=== PATIENT | female | born 1995 | race American Indian/Alaskan Native ===

== ENCOUNTER 2016-09-23 20:37 | Day surgery (SDC) | payer SELFPAY ==
[2016-09-23] MEDS ORDERED: SUBLIMAZE IV ONE (21:10)
--- NOTE | 2016-09-23 21:12 | Emergency Department Report ---
HPI - General Chief Complaint: OB/Uterine Contractions Time Seen by Provider: 09/23/16 20:58 - HPI HPI: This is a 20-year-old Afro-[place] female who presents to the emergency department with a miscarriage. The patient was 14 weeks and 2 days and . Earlier today the patient was taking a shower and then was sitting down to have a bowel movement and upon trying to push out her bowel movement she saw a "bag" in the toilet that appeared to come from her vagina. At this point EMS was called. When the patient was standing up to transfer to a gurney the fetus came out and the patient is here at this point with the fetus outside of her body but the umbilical cord and placenta still attached. She has some lower abdominal discomfort. She took some Tylenol for discomfort just prior to presentation. She does not have an NETWORK SUPPORT. She denies any past medical history. ED Past Medical Hx - Past Medical History Previous Medical History?: No - Surgical History Past Surgical History?: No - Social History Smoking Status: Never Smoker - Medications Home Medications: Home Medications Medication Instructions Recorded Confirmed Last Taken Type No Known Home Medications [No 09/23/16 09/23/16 Unknown History Reported Home Medications] ED Review of Systems ROS: Stated complaint: POSSIBLE MISCARRIAGE Other details as noted in HPI Comment: All other systems reviewed and negative Constitutional: denies: chills, fever Eyes: denies: eye pain, eye discharge, vision change ENT: denies: ear pain, throat pain Respiratory: denies: cough, shortness of breath, wheezing Cardiovascular: denies: chest pain, palpitations Gastrointestinal: abdominal pain. denies: nausea, vomiting Genitourinary: other (miscarriage). denies: dysuria Musculoskeletal: denies: back pain, joint swelling, arthralgia Skin: denies: rash, lesions Neurological: denies: headache, weakness, paresthesias Physical Exam - Physical Exam Vital Signs: Vital Signs 09/23/16 20:51 Temperature 97.9 F Pulse Rate 78 Respiratory 18 Rate Blood Pressure 108/62 Blood Pressure 108/62 [Left] O2 Sat by Pulse 98 Oximetry Physical Exam: GENERAL: The patient is well-developed well-nourished. HEENT: Normocephalic. Atraumatic. Extraocular motions are intact. Patient has moist mucous membranes. Pupils equal reactive to light bilaterally. NECK: Supple. Trachea is midline. CHEST/LUNGS: Clear to auscultation. There is no respiratory distress noted. HEART/CARDIOVASCULAR: Regular. There is no tachycardia. There is no gallop rub or murmur. ABDOMEN: Abdomen is soft. Some tenderness to the lower quadrants of the abdomen and pelvis. No guarding rebound tenderness. Nontoxic a rigid abdomen. Patient has normal bowel sounds. There is no abdominal distention. SKIN: Skin is warm and dry. NEURO: The patient is awake, alert, and oriented. The patient is cooperative. The patient has no focal neurologic deficits. The patient has normal speech. MUSCULOSKELETAL: There is no tenderness or deformity. There is no limitation range of motion. There is no evidence of acute injury. : Patient has visibly miscarried and the aborted fetus is in a collection been between her legs with the umbilical cord heading into the vagina still suspected to be attached to the placenta. ED Course Vital Signs 09/23/16 20:51 Temperature 97.9 F Pulse Rate 78 Respiratory 18 Rate Blood Pressure 108/62 Blood Pressure 108/62 [Left] O2 Sat by Pulse 98 Oximetry - Consultations Consultation #1: I spoke with the NETWORK SUPPORT on-call, Dr. Silvestre, who is coming to see the patient in the emergency department. 09/23/16 21:12 ED Medical Decision Making - Medical Decision Making 20-year-old female presents to the emergency department after having a miscarriage at home. Patient presents with the fetus outside of the vagina and a collection been with the umbilical cords going into the vagina, most likely still attached to the placenta. Patient's vital signs are stable throughout ED course. I did a physical examination with charge nurse Rikki with me as a director of broadcast. The NETWORK SUPPORT, Dr. Silvestre, was consult it and saw the patient in the emergency department and is taking her to the OR for a D&C and then short stay. - Differential Diagnosis , miscarriage Critical Care Time: No Critical care attestation.: If time is entered above; I have spent that time in minutes in the direct care of this critically ill patient, excluding procedure time. ED Disposition Clinical Impression: Spontaneous miscarriage, Retained products of conception Disposition: OP ADMITTED IP TO THIS HOSP Is pt being admited?: Yes Condition: Stable Time of Disposition: 22:33
--- NOTE | 2016-09-23 22:10 | Short Stay Summary ---
Short Stay Documentation Date of service: 09/23/16 Narrative H&P: Pt is a 20yo BF LMP 07/15/16 presents to the emergency department with a miscarriage at 14 weeks and 2 days. Earlier today she was taking a shower and then was sitting down to have a bowel movement when she saw a "bag" in the toilet that came from her vagina. At this point EMS was called. When the patient was standing up to transfer to a gurney the fetus came out, and is still hanging outside of her body attached to the in-utero umbilical cord. She has still some lower abdominal discomfort, but bleeding is minimal. She is therefore scheduled for a D&C RUTH. - History Principal diagnosis: Incomplete miscarriage H&P: obtained from office Past Medical History: No medical history Past Surgical History: No surgical history Social history: no significant social history, single - Allergies and Medications Current Medications: Allergies No Known Allergies Allergy (Unverified 09/23/16 20:51) Home Medications Medication Instructions Recorded Confirmed Last Taken Type No Known Home Medications [No 09/23/16 09/23/16 Unknown History Reported Home Medications] - Physical exam General appearance: mild distress Integumentary: no rash HEENT: Atraumatic Lungs: Clear to auscultation Breasts: deferred Heart: Regular rate Gastrointestinal: normal Female Genitourinary: deferred Rectal Exam: deferred Extremities: No edema Neurological: Normal speech - Brief post op/procedure progress note Date of procedure: 09/23/16 Pre-op diagnosis: 1. Incomplete 2. Retained products of conception Post-op diagnosis: same Procedure: D&C Anesthesia: GETA Findings: A 12-14 weeks size uterus with fetus and large placenta attached. Moderate amounts of POC obtained. Surgeon: ANN MARIE GALAN Estimated blood loss: other (300ml) Pathology: list (Fetus, placenta and POC.) Specimen disposition: to lab Condition: stable - Hospital course Hospital course: Unremarkable. - Disposition Condition at discharge: Good Disposition: DISCHARGED TO HOME OR SELFCARE - Discharge Diagnoses (1) Retained products of conception Status: Resolved (2) Spontaneous miscarriage Status: Resolved Short Stay Discharge Plan Activity: no restrictions Diet: regular Follow up with: PRIMARY CARE, [Primary Care Provider] - 3-5 Days ANN MARIE GALAN MD [Staff Physician] - 7 Days Prescriptions: Doxycycline [Vibramycin CAP] 100 mg PO Q12HR #14 capsule Ibuprofen [Motrin] 800 mg PO Q8HR PRN #30 tablet PRN Reason: Pain, Moderate (4-6) Methylergonovine [Methergine] 0.2 mg PO Q8HR #6 tablet
[2016-09-23] MEDS ORDERED: DILAUDID ONE (22:32)
[2016-09-23] MEDS ORDERED: DIPRIVAN 10 MG/ML IV ONE (22:32)
[2016-09-23] MEDS ORDERED: XYLOCAINE MPF 2% ONE (22:34)
[2016-09-23] MEDS ORDERED: DECADRON ONE (22:34)
[2016-09-23] MEDS ORDERED: ZOFRAN ONE (22:34)
[2016-09-23] MEDS ORDERED: VERSED ONE (22:35)
[2016-09-23] MEDS ORDERED: LACTATED RINGERS 1,000 ML ONE ×2 (22:36→23:52)
[2016-09-23] MEDS ORDERED: PEPCID IV ONE (22:37)
[2016-09-23] MEDS ORDERED: REGLAN ONE (22:37)
--- NOTE | 2016-09-23 22:44 | Anesthesia Consultation ---
Anesthesia Consult and Med Hx Date of service: 09/23/16 - Airway Anesthetic Teeth Evaluation: Good ROM Head & Neck: Adequate Mental/Hyoid Distance: Adequate Mallampati Class: Class I Intubation Access Assessment: Good - Pulmonary Exam CTA: Yes - Cardiac Exam Cardiac Exam: RRR - Pre-Operative Health Status ASA Pre-Surgery Classification: ASA1, Emergency Proposed Anesthetic Plan: General - Gastrointestinal Hx Gastroesophageal Reflux Disease: No - Additional Comments Anesthesia Medical History Comments: incomplete at 14 weeks and 2 days. No significant past medical history.
--- NOTE | 2016-09-23 22:44 | Anesthesia Day of Surgery ---
Anesthesia Day of Surgery - Day of Surgery Patient Examined: Yes Patient H&P Reviewed: Yes Patient is NPO: No (few potato chips at 2100)
[2016-09-23] MEDS ORDERED: NORCO 5/325 PO PRN ×2 (22:45)
[2016-09-23] MEDS ORDERED: ZOFRAN IV PRN ×2 (22:45)
[2016-09-23 22:56] LABS: Hematocrit 30.5 % (30.3-42.9); Hemoglobin 10.5 gm/dl (10.1-14.3); Mean Corpuscular HGB Conc 34 % (30-34); Mean Corpuscular Hemoglobin 31 pg (28-32); Mean Corpuscular Volume 91 fl (79-97); Platelet Count 279 K/mm3 (140-440); Red Blood Count 3.37 M/mm3 (3.65-5.03); Red Cell Distribution Width 13.1 % (13.2-15.2)
[2016-09-23] MEDS ORDERED: ANCEF/STERILE WATER 2 GM/20 ML 2 GM/20 ML SYRINGE IV NR (23:00)
[2016-09-23] MEDS ORDERED: REGLAN IV NR (23:00)
[2016-09-23] MEDS ORDERED: PEPCID IV NR (23:00)
[2016-09-23] MEDS ORDERED: LACTATED RINGERS 1,000 ML IV SCH (23:00)
[2016-09-23] MEDS ORDERED: NACL 0.9% 1000 ML 1,000 ML ONE (23:14)
[2016-09-23] MEDS ORDERED: METHERGINE IM ONE (23:24)
[2016-09-23] MEDS ORDERED: DILAUDID IV PRN (23:33)
--- NOTE | 2016-09-23 23:36 | Post Anesthesia Evaluation ---
- Post Anesthesia Evaluation Patient Participated: Yes Airway Patent: Yes Stable Respiratory Function: Yes Temp > 96.8F: Yes Pain Manageable: Yes Adequeate Hydration: Yes Anesthesia Complications: No Block Receding Appropriately: Not Applicable
--- NOTE | 2016-09-23 23:40 | Operative Report ---
Operative Report Operative Report: PREOPERATIVE DIAGNOSIS: 1. Incomplete 2. Retained products of conception POSTOPERATIVE DIAGNOSIS: Same OPERATIVE PROCEDURE: Dilatation and curettage. SURGEON: Gene Silvestre MD ANESTHESIA: General endotracheal intubation ANESTHESIOLOGIST: Dr. Sorensen ESTIMATED BLOOD LOSS: 300 mL's FINDINGS: A 12-14 week size uterus with intact placenta attached to fetus, and moderate amounts of products of conception COMPLICATIONS: None COUNTS: Correct x3. PROCEDURE: After the patient was correctly identified, and after general anesthesia was administered, the umbilical cord was cut, thus the fetus from the placenta, and the placenta was also delivered intact and sent to pathology. Next the patient was prepped and draped in the usual sterile fashion and placed in dorsal lithotomy position. The bladder was emptied using a straight catheter, and a speculum was placed in the vaginal vault and the anterior lip of the cervix was grasped using a single-tooth tenaculum. The uterus was sounded to 14 cm. The cervical os was sequentially dilated, and a 12 mm vaccurette was used to suction blood and products of conception from the uterine cavity. After all the products of conception were removed, the procedure was considered complete. All instruments were removed from the vagina. The patient tolerated the procedure well and was transferred to the recovery room in stable condition.
[2016-09-24] MEDS ORDERED: DILAUDID ONE (00:44)
[2016-09-24] MEDS: DILAUDID IV PRN ×2 (00:45→00:55)
[2016-09-24 01:53] VITALS: BP 110/68
== END 2016-09-23 22:47 | disposition home or self-care (01) ==
LOC: ED 20:37 → OR 22:46 → ED 22:46 → OR 22:47
PROVIDERS: ATTEND Obstetrics & Gynecology
DX: O03.4 Incomplete spontaneous abortion without complication (principal)
CPT/HCPCS: 36415; 59812; 85027; 85461; 86850; 86900; 86901; 88305; 96374; 99285; J1100; J1170; J2210; J2250; J2405; J2704; J2765; J3010; J7030; J7120

== ENCOUNTER 2016-10-07 17:45 | Emergency (ER) | payer SELFPAY ==
--- NOTE | 2016-10-08 00:09 | Emergency Department Report ---
ED Female HPI - General Chief complaint: Urogenital-Female Stated complaint: ER FOLLOW UP Time Seen by Provider: 10/08/16 00:08 Source: patient Mode of arrival: Ambulatory Limitations: No Limitations - History of Present Illness Initial comments: Review of female presents emergency room for follow-up on her D&C which was done on September [address] Gene Silvestre here in the emergency room. Patient missed her appointment to follow up with Dr. Silvestre. Today she complains of very mild the Brown discharge. Denies any abdominal pain does reflect flank pain. Denies of any fever. Denies any urinary symptoms. MD Complaint: vaginal bleeding -: Gradual (12 days) Radiation: non-radiating Severity: mild Severity scale (0 -10): 0 Quality: cramping Consistency: intermittent Improves with: none Worsens with: movement Are you Now?: No Associated Symptoms: denies other symptoms - Related Data Sexually active: Yes Previous Rx's Medication Instructions Recorded Last Taken Type Doxycycline [Vibramycin CAP] 100 mg PO Q12HR #14 capsule 09/23/16 Unknown Rx Ibuprofen [Motrin] 800 mg PO Q8HR PRN #30 tablet 09/23/16 Unknown Rx Methylergonovine [Methergine] 0.2 mg PO Q8HR #6 tablet 09/23/16 Unknown Rx Naproxen [Naprosyn] 500 mg PO BID #30 tablet 10/08/16 Unknown Rx Allergies Allergy/AdvReac Type Severity Reaction Status Date / Time No Known Allergies Allergy Unverified 09/23/16 20:51 ED Review of Systems ROS: Stated complaint: ER FOLLOW UP Other details as noted in HPI Comment: All other systems reviewed and negative Constitutional: denies: chills, fever Eyes: denies: eye pain, eye discharge, vision change ENT: denies: ear pain, throat pain Respiratory: denies: cough, shortness of breath, wheezing Cardiovascular: denies: chest pain, palpitations Endocrine: no symptoms reported Gastrointestinal: denies: abdominal pain, nausea, diarrhea Genitourinary: as per HPI. denies: urgency, dysuria, discharge Musculoskeletal: denies: back pain, joint swelling, arthralgia Skin: denies: rash, lesions Neurological: denies: headache, weakness, paresthesias Psychiatric: denies: anxiety, depression Hematological/Lymphatic: denies: easy bleeding, easy bruising ED Past Medical Hx - Past Medical History Previous Medical History?: Yes Additional medical history: vaginal delivery x 1 - Surgical History Additional Surgical History: D&C 09-24-2016 - Social History Smoking Status: Never Smoker Substance Use Type: Alcohol, Prescribed - Medications Home Medications: Home Medications Medication Instructions Recorded Confirmed Last Taken Type Doxycycline [Vibramycin CAP] 100 mg PO Q12HR #14 capsule 09/23/16 Unknown Rx Ibuprofen [Motrin] 800 mg PO Q8HR PRN #30 tablet 09/23/16 Unknown Rx Methylergonovine [Methergine] 0.2 mg PO Q8HR #6 tablet 09/23/16 Unknown Rx Naproxen [Naprosyn] 500 mg PO BID #30 tablet 10/08/16 Unknown Rx ED Physical Exam - General Limitations: No Limitations General appearance: alert, in no apparent distress - Head Head exam: Present: atraumatic, normocephalic - Eye Eye exam: Present: normal appearance - ENT ENT exam: Present: mucous membranes moist - Neck Neck exam: Present: normal inspection - Respiratory Respiratory exam: Present: normal lung sounds bilaterally. Absent: respiratory distress - Cardiovascular Cardiovascular Exam: Present: regular rate, normal rhythm. Absent: systolic murmur, diastolic murmur, rubs, gallop - GI/Abdominal GI/Abdominal exam: Present: soft, normal bowel sounds - Extremities Exam Extremities exam: Present: normal inspection - Back Exam Back exam: Present: normal inspection - Neurological Exam Neurological exam: Present: alert, oriented X3 - Psychiatric Psychiatric exam: Present: normal affect, normal mood - Skin Skin exam: Present: warm, dry, intact, normal color. Absent: rash ED Course Vital Signs 10/07/16 18:34 Temperature 98.6 F Pulse Rate 81 Respiratory 20 Rate Blood Pressure 121/67 O2 Sat by Pulse 100 Oximetry - Reevaluation(s) Reevaluation #1: Dr. Gene Silvestre was paged around 12:30 this morning. The phone call returned around 1:45 AM. The pt's situation was discussed with Dr. Silvestre that patient missed her appointment for follow-up on her D&C. pt is not have any significant complaints but I told Dr. Silvestre that she insist to have Dr. Silvestre come down and examine her. Dr. Silvestre did not appreciate the request and stated that " You wake me up 2 o' clock for nothing ? ". and hang up the phone. pt. was suggested to f/u with phone call to his office in the morning. 10/08/16 01:49 Critical care attestation.: If time is entered above; I have spent that time in minutes in the direct care of this critically ill patient, excluding procedure time. ED Disposition Clinical Impression: Vaginal spotting Disposition: DISCHARGED TO HOME OR SELFCARE Is pt being admited?: No Does the pt Need Aspirin: No Condition: Good Instructions: Chronic Pelvic Pain in Women (ED) Prescriptions: Naproxen [Naprosyn] 500 mg PO BID #30 tablet Referrals: GENE SILVESTRE MD [Staff Physician] - 3-5 Days
[2016-10-08 02:43] VITALS: BP 109/68
== END 2016-10-08 02:10 | disposition home or self-care (01) ==
LOC: ED 17:45
DX: N93.9 Abnormal uterine and vaginal bleeding, unspecified (principal)
CPT/HCPCS: 99282

== ENCOUNTER 2017-06-08 15:40 | Emergency (ER) | payer MEDICAID, OTHER ==
[2017-06-08 16:15] VITALS: BP 121/78
--- NOTE | 2017-06-08 16:41 | Emergency Department Report ---
Chief Complaint: Syncope Stated Complaint: SYNCOPE,ABD PAIN 9 WEEKS PREG Time Seen by Provider: 06/08/17 16:39 - HPI History of Present Illness: Patient states that she had a positive UPT last week and thinks she's about 9 weeks ; for last 2 days has had lower abdominal cramping and 2 syncopal episodes; denies HI, fevers, diarrhea, dysuria, hematuria and vaginal bleeding - ROS Review of Systems: Negative except for those stated in HPI - Exam Vital Signs: Vital Signs 06/08/17 16:08 Temperature 98.8 F Pulse Rate 60 Respiratory 16 Rate Blood Pressure 121/78 O2 Sat by Pulse 100 Oximetry Physical Exam: NAD Abdomen - TTP over suprapubic area MSE screening note: Focused history and physical exam performed. Due to findings the following was ordered: labs, urine, US Patient to be seen by provider in Main ED ED Disposition for MSE Condition: Stable
[2017-06-08 17:08] LABS: Hemoglobin 11.5 gm/dl (10.1-14.3); Mean Corpuscular HGB Conc 34 % (30-34); Mean Corpuscular Hemoglobin 31 pg (28-32); Mean Corpuscular Volume 92 fl (79-97); Platelet Count 320 K/mm3 (140-440); Red Cell Distribution Width 14.2 % (13.2-15.2); White Blood Count 7.6 K/mm3 (4.5-11.0)
[2017-06-08 17:39] LABS: Alanine Aminotransferase 7 units/L (7-56); Albumin 4.2 g/dL (3.9-5); Albumin/Globulin Ratio 1.6 %; Alkaline Phosphatase 43 units/L (35-129); Anion Gap 16 mmol/L; BUN/Creatinine Ratio 16; Blood Urea Nitrogen 8 mg/dL (7-17); Carbon Dioxide 26 mmol/L (22-30); Chloride 96.1 mmol/L (98-107); Glucose 81 mg/dL (65-100); Sodium 134 mmol/L (137-145); Total Protein 6.9 g/dL (6.3-8.2)
--- NOTE | 2017-06-08 18:59 | Ultrasound Report ---
FINAL REPORT PROCEDURE: Obstetrical ultrasound. TECHNIQUE: Real-time transabdominal sonography of the uterus, placenta, amniotic fluid, adnexa, and fetus was performed with image documentation. Measurements were obtained to determine age/size. M-mode Doppler was used to document heartbeat. CPT 92999 HISTORY: Positive urine test, lower abdominal pain. COMPARISON: No prior studies are available for comparison. FINDINGS: The uterus measures 13.3 centimeters x 6.9 centimeters x 9.5 centimeters. The myometrium appears uniform. There are no focal masses. There is an intrauterine gestational sac. A pole is present. Cardiac activity is documented at 164 beats per minute. The crown-rump length measurement is 2.99 centimeters. This indicates a menstrual age of 9 weeks 6 days. The estimated date of confinement is 01/05/2018. The right ovary is unremarkable. The left ovary is not identified. IMPRESSION: Viable intrauterine with a menstrual age of 9 weeks 6 days.
--- NOTE | 2017-06-08 19:01 | Ultrasound Report ---
FINAL REPORT PROCEDURE: Transvaginal obstetrical ultrasound. TECHNIQUE: Real-time transvaginal sonography of the uterus, placenta, amniotic fluid, adnexa, and fetus was performed with image documentation. Measurements were obtained to determine age/size. M-mode Doppler was used to document heartbeat. CPT 47891 HISTORY: Positive urine test, lower abdominal pain. COMPARISON: No prior studies are available for comparison. FINDINGS: The uterus has uniform echogenicity. There are no focal masses. There is an intrauterine gestational sac. A pole is present. A yolk sac is visible. The crown-rump length measurement is 3.03 centimeters. This indicates a menstrual age of 9 weeks 6 days. The estimated date of confinement is 01/05/2018. Cardiac activity is documented at 166 beats per minute. There is a small complex cyst in the right ovary. This measures 1.8 centimeters in maximum dimension. The left ovary is not visualized. IMPRESSION: Viable intrauterine with a menstrual age of 9 weeks 6 days. Small complex right ovarian cyst.
[2017-06-08 19:15] LABS: Bilirubin,Urine NEG (Negative); Blood,Urine NEG (Negative); Ketones,Urine NEG (Negative); Leukocyte Esterase,Urine SM (Negative); Mucus,Urine 2+ /HPF; Nitrite,Urine NEG (Negative); Protein,Urine <15 mg/dL mg/dL (Negative); Urobilinogen,Urine < 2.0 mg/dL (<2.0)
== END 2017-06-08 23:50 | disposition left against medical advice (07) ==
LOC: ED 15:40
DX: R55 Syncope and collapse (principal); Z53.21 Procedure and treatment not carried out due to patient leaving prior to being seen by health care provider
CPT/HCPCS: 36415; 76801; 76817; 80053; 81001; 84484; 84702; 85027

== ENCOUNTER 2017-06-09 09:39 | Emergency (ER) | payer OTHER ==
--- NOTE | 2017-06-09 10:18 | Emergency Department Report ---
Stated Complaint: ABDOMINAL PAIN - HPI History of Present Illness: 21-year-old female past medical history none currently 9 weeks presents with complaint of 2 episodes of syncope while at work in the last 48 hours. States episodes were associated with shortness of breath at rest. Also complaining of crampy lower abdominal pain. Denies vaginal bleeding denies fevers or chills awake alert and oriented 3. Patient states she came to [facility] yesterday but eloped before being seen requesting her test results - ROS Review of Systems: 2 episodes of syncope at work in the last 48-72 hours - Exam Physical Exam: Awake alert and oriented 3 abdomen soft MSE screening note: Focused history and physical exam performed. Due to findings the following was ordered: Screening Assessment/Plan/Differential Dx: Syncope in patient 1- This initial assessment/diagnostic orders/clinical plan/ treatment(s) is/are subject to change based on pt's health status, clinical progression and re- assessment by fellow clinical providers in the ED. Further treatment and workup at subsequent clinical provers discretion. Patient/guardians urged not to elope from ED as their condition may be serious if not clinically assessed and managed. 2-I reviewed labs that were done yesterday 06/08. Unremarkable. Ultrasound shows intrauterine gestation. 3-consideration of sending d-dimer and context of shortness of breath syncope in patient however this test may be inaccurate secondary to 4-patient to be seen in the main ED. I advised her not to leave until she is evaluated by physician. I explained to her her test results from yesterday ED Disposition for MSE Condition: Stable
--- NOTE | 2017-06-09 13:37 | Emergency Department Report ---
HPI - General Chief Complaint: Syncope Time Seen by Provider: 06/09/17 12:09 - HPI HPI: This is a 21-year-old [place] female presents to the emergency department with complaint of 2 episodes of fainting, one on Thursday, and one yesterday/Thursday. She also complains of some intermittent lower abdominal and/or pelvic cramping sensation. She is currently but unsure how far along she is. With this she is with one previous miscarriage. She just moved here from [place] and therefore does not have a ADJUNCT INSTRUCTOR or primary care physician. She is not taking any prenatals. She has not taken anything for her symptoms prior to presentation. 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 Currently she denies any physical complaints. She denies any vaginal bleeding or discharge, fever, headache, vision change or any neurological deficits. ED Past Medical Hx - Past Medical History Previous Medical History?: No Additional medical history: vaginal delivery x 1 - Surgical History Past Surgical History?: Yes Additional Surgical History: D&C 09-24-2016 - Social History Smoking Status: Never Smoker - Medications Home Medications: Home Medications Medication Instructions Recorded Confirmed Last Taken Type Doxycycline [Vibramycin CAP] 100 mg PO Q12HR #14 capsule 09/23/16 Unknown Rx Ibuprofen [Motrin] 800 mg PO Q8HR PRN #30 tablet 09/23/16 Unknown Rx Methylergonovine [Methergine] 0.2 mg PO Q8HR #6 tablet 09/23/16 Unknown Rx Naproxen [Naprosyn] 500 mg PO BID #30 tablet 10/08/16 Unknown Rx Doxylamine Succinate/Vit B6 2 each PO QHS PRN #20 tablet. 06/09/17 Unknown Rx [Austyn Driver 10-10 mg Tablet] ED Review of Systems ROS: Stated complaint: ABDOMINAL PAIN Other details as noted in HPI Comment: All other systems reviewed and negative Constitutional: denies: chills, fever Eyes: denies: eye pain, eye discharge, vision change ENT: denies: ear pain, throat pain Respiratory: denies: cough, shortness of breath, wheezing Cardiovascular: syncope. denies: chest pain Gastrointestinal: abdominal pain, nausea, vomiting Genitourinary: denies: urgency, dysuria, discharge Musculoskeletal: denies: back pain, joint swelling, arthralgia Skin: denies: rash, lesions Neurological: denies: headache, weakness, paresthesias Physical Exam - Physical Exam Vital Signs: Vital Signs 06/09/17 10:05 Temperature 97.1 F L Pulse Rate 70 Respiratory 16 Rate Blood Pressure 118/71 O2 Sat by Pulse 100 Oximetry Physical Exam: GENERAL: The patient is well-developed well-nourished. HENT: Normocephalic. Atraumatic. Patient has moist mucous membranes. EYES: Extraocular motions are intact. Pupils equal reactive to light bilaterally. No nystagmus. NECK: Supple. Trachea is midline. CHEST/LUNGS: Clear to auscultation. There is no respiratory distress noted. HEART/CARDIOVASCULAR: Regular. There is no tachycardia. There is no murmur. ABDOMEN: Abdomen is soft. Unable to reproduce lower abdominal and/or pelvic tenderness to palpation. No guarding rebound tenderness. No peritoneal signs. Patient has normal bowel sounds. There is no abdominal distention. SKIN: Skin is warm and dry. NEURO: The patient is awake, alert, and oriented. The patient is cooperative. The patient has no focal neurologic deficits. The patient has normal speech. MUSCULOSKELETAL: There is no tenderness or deformity. There is no limitation range of motion. There is no evidence of acute injury. ED Course Vital Signs 06/09/17 10:05 Temperature 97.1 F L Pulse Rate 70 Respiratory 16 Rate Blood Pressure 118/71 O2 Sat by Pulse 100 Oximetry ED Medical Decision Making - Lab Data Result diagrams: 06/09/17 13:41 06/09/17 13:41 - EKG Data -: EKG Interpreted by Wy EKG shows normal: sinus rhythm, axis, intervals, QRS complexes, ST-T waves Rate: normal - EKG Data When compared to previous EKG there are: previous EKG unavailable Interpretation: normal EKG - Radiology Data Radiology results: report reviewed The transvaginal ultrasound was done yesterday afternoon prior to the patient's elopement. There has been no vaginal bleeding or any change in her status since and therefore I did not repeat the ultrasound. The transvaginal obstetrical ultrasound shows a viable intrauterine with a menstrual age of 9 weeks and 6 days. There is a small complex right ovarian cyst. - Medical Decision Making 21-year-old female presents to the emergency department with a complaint of 2 syncopal episodes and some intermittent lower abdominal and/or pelvic discomfort. She has no vaginal bleeding, discharge or dysuria. EKG was normal without ST elevation [place], ischemia or dysrhythmia. Her labs have been mostly unremarkable during her ED course. She did have a low TSH and had a normal T4 level. No signs of infection or electrolyte abnormalities. Negative troponin. Patient has not had any chest pain, back pain or shortness of breath. She is low on the well's score criteria and negative on the pulmonary embolism rule out criteria. Regarding the patient's abdominal pains, they are intermittent and her abdomen is soft and nontender. There is no localized pain to the right lower quadrant and any peritoneal signs. We have already had visualization of the uterus and the ovaries. I think appendicitis is low likelihood I discussed with her about returning if the pain localizes to the right lower quadrant or development of fever. Physical exam she does not have any focal, motor or sensory deficits and cranial nerves are intact. Vital signs are stable throughout her ED course. Her abdomen is soft, nontender to palpation and does not appear as a toxic or rigid or surgical abdomen. The ultrasound that was done yesterday shows a live intrauterine and a right ovarian cyst. She has been encouraged to follow up with her ADJUNCT INSTRUCTOR in the next few days. She has been encouraged to return to the emergency Department with any worsening of her symptoms or any acute distress especially if the patient starts having vaginal bleeding, worsening abdominal or pelvic pains or any intractable vomiting. - Differential Diagnosis , round ligament pain, ovarian cyst, fibroids, vasovagal Critical Care Time: No Critical care attestation.: If time is entered above; I have spent that time in minutes in the direct care of this critically ill patient, excluding procedure time. ED Disposition Clinical Impression: Intermittent abdominal pain Syncope Qualifiers: Syncope type: unspecified Qualified Code(s): R55 - Syncope and collapse Qualifiers: Weeks of gestation: 9 weeks Qualified Code(s): Z3A.09 - 9 weeks gestation of Disposition: DC-01 TO HOME OR SELFCARE Is pt being admited?: No Condition: Stable Instructions: Syncope (ED), (ED), Abdominal Pain (ED) Additional Instructions: Please follow-up with your ADJUNCT INSTRUCTOR in the next few days. Return to the emergency department with any development of fever, development of vaginal bleeding, worsening of your abdominal pain, intractable vomiting, or any acute distress. Prescriptions: Doxylamine Succinate/Vit B6 [Austyn Driver 10-10 mg Tablet] 2 each PO QHS PRN #20 tablet. PRN Reason: Nausea Referrals: JIM KHAN MD [Primary Care Provider] - 3-5 Days [facility] [Provider Group] - 3-5 Days [facility] [Provider Group] - 3-5 Days [facility] [Outside] - 3-5 Days Forms: Work/School Release Form(ED) Time of Disposition: 16:59
[2017-06-09 14:19] LABS: Basophils % (Auto) 0.4 % (0.0-1.8); Eosinophils % (Auto) 0.8 % (0.0-4.3); Hematocrit 33.4 % (30.3-42.9); Hemoglobin 11.3 gm/dl (10.1-14.3); Mean Corpuscular HGB Conc 34 % (30-34); Mean Corpuscular Hemoglobin 31 pg (28-32); Mean Corpuscular Volume 91 fl (79-97); Platelet Count 295 K/mm3 (140-440); Red Blood Count 3.68 M/mm3 (3.65-5.03); Red Cell Distribution Width 14.5 % (13.2-15.2); White Blood Count 6.9 K/mm3 (4.5-11.0)
[2017-06-09 14:42] LABS: Alanine Aminotransferase 6 units/L (7-56); Albumin 3.6 g/dL (3.9-5); Albumin/Globulin Ratio 1.2 %; Alkaline Phosphatase 42 units/L (35-129); Anion Gap 17 mmol/L; BUN/Creatinine Ratio 18; Bilirubin,Total < 0.20 mg/dL (0.1-1.2); Blood Urea Nitrogen 7 mg/dL (7-17); Calcium 8.5 mg/dL (8.4-10.2); Carbon Dioxide 23 mmol/L (22-30); Chloride 100.7 mmol/L (98-107); Glucose 83 mg/dL (65-100); Sodium 137 mmol/L (137-145); Total Protein 6.5 g/dL (6.3-8.2)
[2017-06-09 15:05] LABS: Bilirubin,Urine NEG (Negative); Blood,Urine NEG (Negative); Ketones,Urine NEG (Negative); Leukocyte Esterase,Urine SM (Negative); Mucus,Urine 1+ /HPF; Nitrite,Urine NEG (Negative); Protein,Urine <15 mg/dL mg/dL (Negative); Urobilinogen,Urine < 2.0 mg/dL (<2.0)
[2017-06-09 17:25] VITALS: BP 103/68
== END 2017-06-09 17:26 | disposition home or self-care (01) ==
LOC: ED 09:39
DX: O26.891 Other specified pregnancy related conditions, first trimester (principal); R10.30 Lower abdominal pain, unspecified; R55 Syncope and collapse; Z3A.09 9 weeks gestation of pregnancy
CPT/HCPCS: 36415; 80053; 81001; 84436; 84443; 84481; 84484; 85025; 93005; 93010; 99283

== ENCOUNTER 2017-06-18 13:09 | Emergency (ER) | payer OTHER ==
[2017-06-18 14:19] LABS: Basophils % (Auto) 0.2 % (0.0-1.8); Eosinophils % (Auto) 0.4 % (0.0-4.3); Hematocrit 35.4 % (30.3-42.9); Hemoglobin 11.8 gm/dl (10.1-14.3); Mean Corpuscular HGB Conc 33 % (30-34); Mean Corpuscular Hemoglobin 30 pg (28-32); Mean Corpuscular Volume 91 fl (79-97); Platelet Count 313 K/mm3 (140-440); Red Blood Count 3.87 M/mm3 (3.65-5.03); Red Cell Distribution Width 14.3 % (13.2-15.2); White Blood Count 8.8 K/mm3 (4.5-11.0)
[2017-06-18 14:21] LABS: Anion Gap 18 mmol/L; BUN/Creatinine Ratio 20; Blood Urea Nitrogen 8 mg/dL (7-17); Carbon Dioxide 23 mmol/L (22-30); Chloride 98.4 mmol/L (98-107); Glucose 92 mg/dL (65-100); Potassium 3.6 mmol/L (3.6-5.0); Sodium 136 mmol/L (137-145)
[2017-06-18 20:57] VITALS: BP 113/71
[2017-06-18] MEDS ORDERED: NACL 0.9% 1000 ML 1,000 ML IV ONE (21:15)
--- NOTE | 2017-06-18 22:03 | Emergency Department Report ---
HPI - General Chief Complaint: Abdominal Pain Time Seen by Provider: 06/18/17 21:07 - HPI HPI: This is a 21 year-old female whom I have seen one time in the past, about one week ago, for similar symptoms. However at that time the patient was complaining of some intermittent episodes of passing out. The patient is currently at about 10 weeks and with this she is . She complains of continued nausea and vomiting and says sometimes she cannot even keep down liquids. She has some intense intermittent lower abdominal cramping and pain. She denies any vaginal bleeding. There have been no further episodes of passing out. She denies any headache, vision change, chest pain, fever. She has an appointment with an SCREEN MAKING TECHNICIAN for the first time with this on June 30 at [facility] [place] Past Medical Hx - Past Medical History Additional medical history: vaginal delivery x 1 - Surgical History Additional Surgical History: D&C 09-24-2016 - Social History Smoking Status: Never Smoker Substance Use Type: None - Medications Home Medications: Home Medications Medication Instructions Recorded Confirmed Last Taken Type Doxycycline [Vibramycin CAP] 100 mg PO Q12HR #14 capsule 09/23/16 Unknown Rx Ibuprofen [Motrin] 800 mg PO Q8HR PRN #30 tablet 09/23/16 Unknown Rx Methylergonovine [Methergine] 0.2 mg PO Q8HR #6 tablet 09/23/16 Unknown Rx Naproxen [Naprosyn] 500 mg PO BID #30 tablet 10/08/16 Unknown Rx Doxylamine Succinate/Vit B6 2 each PO QHS PRN #20 tablet. 06/09/17 Unknown Rx [Austyn Driver 10-10 mg Tablet] Nitrofurantoin Monohyd/M-Cryst 100 mg PO BID #14 capsule 06/19/17 Unknown Rx [Macrobid 100 mg Capsule] Ondansetron [Zofran Odt] 4 mg PO Q8H PRN #18 tab.rapdis 06/19/17 Unknown Rx ED Review of Systems ROS: Stated complaint: ABD PAIN Other details as noted in HPI Comment: All other systems reviewed and negative Constitutional: denies: chills, fever Eyes: denies: eye pain, eye discharge, vision change ENT: denies: ear pain, throat pain Respiratory: denies: cough, shortness of breath, wheezing Cardiovascular: denies: chest pain, palpitations Gastrointestinal: abdominal pain, nausea, vomiting Genitourinary: denies: urgency, dysuria, discharge Musculoskeletal: denies: back pain, joint swelling, arthralgia Skin: denies: rash, lesions Neurological: denies: headache, weakness, paresthesias Physical Exam - Physical Exam Vital Signs: Vital Signs 06/18/17 06/18/17 13:37 20:55 Temperature 98.6 F 98.3 F Pulse Rate 83 68 Respiratory 20 18 Rate Blood Pressure 114/73 Blood Pressure 113/71 [Right] O2 Sat by Pulse 100 100 Oximetry Physical Exam: GENERAL: The patient is well-developed well-nourished. Patient actively vomiting in the room. HENT: Normocephalic. Atraumatic. Patient has moist mucous membranes. EYES: Extraocular motions are intact. Pupils equal reactive to light bilaterally. NECK: Supple. Trachea is midline. CHEST/LUNGS: Clear to auscultation. There is no respiratory distress noted. HEART/CARDIOVASCULAR: Regular. There is no tachycardia. There is no murmur. ABDOMEN: Abdomen is soft, nontender. Patient has normal bowel sounds. There is no abdominal distention. SKIN: Skin is warm and dry. NEURO: The patient is awake, alert, and oriented. The patient is cooperative. The patient has no focal neurologic deficits. The patient has normal speech. MUSCULOSKELETAL: There is no tenderness or deformity. There is no limitation range of motion. There is no evidence of acute injury. ED Course Vital Signs 06/18/17 06/18/17 13:37 20:55 Temperature 98.6 F 98.3 F Pulse Rate 83 68 Respiratory 20 18 Rate Blood Pressure 114/73 Blood Pressure 113/71 [Right] O2 Sat by Pulse 100 100 Oximetry - Consultations Consultation #1: I spoke to the SCREEN MAKING TECHNICIAN distribution collection operator for [facility], Dr. Almanza, who feels that it is okay for the patient to receive Zofran while . 06/19/17 00:52 ED Medical Decision Making - Lab Data Result diagrams: 06/18/17 13:49 06/18/17 13:49 - Radiology Data Radiology results: report reviewed EXAM: US OB TRANSVAGINAL HISTORY: abd pain, preg . LMP 04/03/2017 with estimated age 10 weeks 6 days and EDC 01/08/2018. Quantitative beta HCG level [id number] corresponding to estimated age 7-12 weeks TECHNIQUE: Ultrasound of the pelvis using transabdominal and transvaginal imaging PRIORS: 06/08/2017 ultrasound pelvis FINDINGS: Uterus: Uterus is enlarged in size and normal and homogeneous in echogenicity without focal fibroid formation. The uterus measures 12.6 x 10.0 x 9.5 cm in size. There is a single early viable intrauterine gestation noted. Intrauterine gestation: There is a single intrauterine gestation identified with both a pole and yolk sac. heart rate is monitored at 166 BPM using M-mode doppler. Peculiar-rump length measurement of 5.0 cm corresponds to estimated age 11 weeks 5 days with EDC 01/02/2018. Ovaries: The left ovary is not visualized. The right ovary appears in size and echogenicity with normal blood flow. The right ovary measures 2.6 x 1.7 x 2.6 cm. The 1.1 cm complex avascular cyst in the right ovary is likely corpus luteum. Other: There is no evidence for solid adnexal mass is seen. There is trace amount of free fluid in the cul-de-sac. IMPRESSION: Single intrauterine viable with an approximate age of 11 weeks 5 days. Nonvisualization of the left ovary. - Medical Decision Making The patient was actively vomiting when first approach for the H&P. She was given some IV fluid resuscitation and a dose of Zofran. She had an ultrasound that shows a live intrauterine at about 11 weeks and 5 days. Labs are mostly unremarkable except for a very mild urinary tract infection. She was given Macrobid for this. Upon reevaluation the patient is feeling much better and able to keep down some fluid. I spoke to her SCREEN MAKING TECHNICIAN service to make sure that it was okay to prescribe her 4 Zofran and was given permission to do so. The patient will be given a work note that says she should stay off work until follow-up with the SCREEN MAKING TECHNICIAN service on June 30 as otherwise there is no way for her to return to work without having to use heavy exertion and lift heavy objects and/or people. She will return to the emergency Department with any worsening of her abdominal pain, development of vaginal bleeding, inability to stay hydrated with intractable vomiting or any acute distress. Otherwise she will follow-up with the SCREEN MAKING TECHNICIAN service as previously scheduled on June 30. - Differential Diagnosis , hyperemesis gravidarum, food poisoning, miscarriage Critical Care Time: No Critical care attestation.: If time is entered above; I have spent that time in minutes in the direct care of this critically ill patient, excluding procedure time. ED Disposition Clinical Impression: Hyperemesis gravidarum Qualifiers: Weeks of gestation: 11 weeks Qualified Code(s): Z3A.11 - 11 weeks gestation of UTI (urinary tract infection) Qualifiers: Urinary tract infection type: acute cystitis Hematuria presence: without hematuria Qualified Code(s): N30.00 - Acute cystitis without hematuria Disposition: TO HOME OR SELFCARE Is pt being admited?: No Condition: Stable Instructions: (ED), Hyperemesis Gravidarum (ED), Urinary Tract Infection in Women (ED) Additional Instructions: Please follow up with the SCREEN MAKING TECHNICIAN service on June 30 as previously scheduled but I recommend trying to get in earlier if possible. Return to the emergency department with any worsening of her symptoms, vaginal bleeding, inability to stay hydrated, or any acute distress. Prescriptions: Nitrofurantoin Monohyd/M-Cryst [Macrobid 100 mg Capsule] 100 mg PO BID #14 capsule Ondansetron [Zofran Odt] 4 mg PO Q8H PRN #18 tab.rapdis PRN Reason: Nausea Referrals: [facility] [Provider Group] - 3-5 Days Forms: Work/School Release Form(ED) Time of Disposition: 00:45
[2017-06-18] MEDS ORDERED: ZOFRAN IV ONE (22:21)
--- NOTE | 2017-06-18 23:01 | Ultrasound Report ---
FINAL REPORT EXAM: US OB TRANSVAGINAL HISTORY: abd pain, preg . LMP 04/03/2017 with estimated age 10 weeks 6 days and EDC 01/08/2018. Quantitative beta HCG level [id number] corresponding to estimated age 7-12 weeks TECHNIQUE: Ultrasound of the pelvis using transabdominal and transvaginal imaging PRIORS: 06/08/2017 ultrasound pelvis FINDINGS: Uterus: Uterus is enlarged in size and normal and homogeneous in echogenicity without focal fibroid formation. The uterus measures 12.6 x 10.0 x 9.5 cm in size. There is a single early viable intrauterine gestation noted. Intrauterine gestation: There is a single intrauterine gestation identified with both a pole and yolk sac. heart rate is monitored at 166 BPM using M-mode doppler. [place]cker-rump length measurement of 5.0 cm corresponds to estimated age 11 weeks 5 days with EDC 01/02/2018. Ovaries: The left ovary is not visualized. The right ovary appears in size and echogenicity with normal blood flow. The right ovary measures 2.6 x 1.7 x 2.6 cm. The 1.1 cm complex avascular cyst in the right ovary is likely corpus luteum. Other: There is no evidence for solid adnexal mass is seen. There is trace amount of free fluid in the cul-de-sac. IMPRESSION: Single intrauterine viable with an approximate age of 11 weeks 5 days. Nonvisualization of the left ovary.
--- NOTE | 2017-06-18 23:02 | Ultrasound Report ---
FINAL REPORT EXAM: US OB < = 14 WEEKS FETUS HISTORY: abd pain, preg . LMP 04/03/2017 with estimated age 10 weeks 6 days and EDC 01/08/2018. Quantitative beta HCG level [id number] corresponding to estimated age 7-12 weeks TECHNIQUE: Ultrasound of the pelvis using transabdominal and transvaginal imaging PRIORS: 06/08/2017 ultrasound pelvis FINDINGS: Uterus: Uterus is enlarged in size and normal and homogeneous in echogenicity without focal fibroid formation. The uterus measures 12.6 x 10.0 x 9.5 cm in size. There is a single early viable intrauterine gestation noted. Intrauterine gestation: There is a single intrauterine gestation identified with both a pole and yolk sac. heart rate is monitored at 166 BPM using M-mode doppler. [place]-rump length measurement of 5.0 cm corresponds to estimated age 11 weeks 5 days with EDC 01/02/2018. Ovaries: The left ovary is not visualized. The right ovary appears in size and echogenicity with normal blood flow. The right ovary measures 2.6 x 1.7 x 2.6 cm. The 1.1 cm complex avascular cyst in the right ovary is likely corpus luteum. Other: There is no evidence for solid adnexal mass is seen. There is trace amount of free fluid in the cul-de-sac. IMPRESSION: Single intrauterine viable with an approximate age of 11 weeks 5 days. Nonvisualization of the left ovary.
[2017-06-18 23:13] LABS: Bilirubin,Urine NEG (Negative); Blood,Urine NEG (Negative); Ketones,Urine NEG (Negative); Leukocyte Esterase,Urine LG (Negative); Mucus,Urine FEW /HPF; Nitrite,Urine NEG (Negative); Protein,Urine <15 mg/dL mg/dL (Negative); Urobilinogen,Urine < 2.0 mg/dL (<2.0)
[2017-06-18] MEDS ORDERED: MACROBID PO ONE (23:24)
== END 2017-06-18 23:00 | disposition home or self-care (01) ==
LOC: ED 13:09
DX: O21.0 Mild hyperemesis gravidarum (principal); O23.41 Unspecified infection of urinary tract in pregnancy, first trimester; Z3A.11 11 weeks gestation of pregnancy
CPT/HCPCS: 36415; 76801; 76817; 80048; 81001; 84702; 85025; 96361; 96374; 99284; J2405; J7030

== ENCOUNTER 2017-10-13 18:26 | Outpatient (CLI) | payer MEDICAID ==
[2017-10-13] MEDS ORDERED: LACTATED RINGERS 1,000 ML IV ONE (19:20)
[2017-10-13 19:46] LABS: Bacteria,Urine 1+ /HPF (Negative); Bilirubin,Urine NEG (Negative); Blood,Urine NEG (Negative); Color,Urine Yellow (Yellow); Mucus,Urine FEW /HPF; Protein,Urine <15 mg/dL mg/dL (Negative); Urobilinogen,Urine < 2.0 mg/dL (<2.0)
== END 2017-10-13 20:28 | disposition home or self-care (01) ==
LOC: TRG 18:26
PROVIDERS: ATTEND Obstetrics & Gynecology
DX: O47.02 False labor before 37 completed weeks of gestation, second trimester (principal); Z3A.27 27 weeks gestation of pregnancy
CPT/HCPCS: 59025; 81001

== ENCOUNTER 2017-10-25 15:51 | Outpatient (CLI) | payer MEDICAID ==
[2017-10-25] MEDS ORDERED: LACTATED RINGERS 500 ML IV ONE (16:01)
[2017-10-25 16:41] LABS: Bilirubin,Urine NEG (Negative); Blood,Urine NEG (Negative); Color,Urine Yellow (Yellow); Mucus,Urine 1+ /HPF; Protein,Urine <15 mg/dL mg/dL (Negative); Urobilinogen,Urine < 2.0 mg/dL (<2.0)
[2017-10-25 17:13] LABS: Amphetamine Screen,Urine PRESUMPTIVE NEGATIVE; Benzodiazepines Screen,Urine PRESUMPTIVE NEGATIVE; Cannabinoid Screen,Urine PRESUMPTIVE NEGATIVE; Cocaine Screen,Urine PRESUMPTIVE NEGATIVE; Methadone Screen,Urine PRESUMPTIVE NEGATIVE; Opiate Screen,Urine PRESUMPTIVE NEGATIVE
[2017-10-25 17:47] VITALS: BP 103/69
== END 2017-10-25 17:25 | disposition home or self-care (01) ==
LOC: TRG 15:51
PROVIDERS: ATTEND Obstetrics & Gynecology
DX: O47.03 False labor before 37 completed weeks of gestation, third trimester (principal); Z3A.29 29 weeks gestation of pregnancy
CPT/HCPCS: 59025; 80307; 81001

== ENCOUNTER 2017-12-30 01:39 | Inpatient (IN) | payer MEDICAID ==
[2017-12-30] MEDS ORDERED: LACTATED RINGERS 1,000 ML ONE (01:57)
[2017-12-30] MEDS ORDERED: SUBLIMAZE ONE (02:10)
[2017-12-30] MEDS ORDERED: SUBLIMAZE IV PRN (02:16)
[2017-12-30] MEDS ORDERED: POLYCILLIN/NS 2 GM/100 ML 2 GM/100 ML BAG IV ONE (02:16)
[2017-12-30] MEDS ORDERED: ePHEDrine SULFATE ONE (02:42)
[2017-12-30] MEDS ORDERED: PITOCin/NS 20 UNIT/1000ML DRIP 20 UNITS/1,000 ML BAG IV SCH ×3 (03:00→04:00)
[2017-12-30] MEDS ORDERED: LACTATED RINGERS 1,000 ML IV SCH ×2 (03:00→04:00)
--- NOTE | 2017-12-30 03:12 | History and Physical Report ---
History of Present Illness Date of examination: 12/30/17 Date of admission: 12/30/17 01:49 Chief complaint: Labor History of present illness: Pt is a 22yo BF EDC ; EGA 38 5/7 weeks presents to L&D complaining of SROM meconium fluid @ 1AM followed by RUC's q 3-4 mins. She received care with Dr Mercedes and course has been unremarkable. However records are not available and GBS is unknown. Past History Past Medical History: no pertinent history Past Surgical History: no surgical history Family/Genetic History: none Social history: no significant social history, single - Obstetrical History Expected Date of Delivery: 01/08/18 Actual Gestation: 38 Week(s) 5 Day(s) : 3 Medications and Allergies Allergies Allergy/AdvReac Type Severity Reaction Status Date / Time No Known Allergies Allergy Verified 06/18/17 13:41 Home Medications Medication Instructions Recorded Confirmed Last Taken Type Doxycycline [Vibramycin CAP] 100 mg PO Q12HR #14 capsule 09/23/16 Unknown Rx Ibuprofen [Motrin] 800 mg PO Q8HR PRN #30 tablet 09/23/16 Unknown Rx Methylergonovine [Methergine] 0.2 mg PO Q8HR #6 tablet 09/23/16 Unknown Rx Naproxen [Naprosyn] 500 mg PO BID #30 tablet 10/08/16 Unknown Rx Doxylamine Succinate/Vit B6 2 each PO QHS PRN #20 tablet. 06/09/17 Unknown Rx [Diclegideepa Driver 10-10 mg Tablet] Nitrofurantoin Monohyd/M-Cryst 100 mg PO BID #14 capsule 06/19/17 Unknown Rx [Macrobid 100 mg Capsule] Ondansetron [Zofran Odt] 4 mg PO Q8H PRN #18 tab.rapdis 06/19/17 Unknown Rx Active Meds: Active Medications Fentanyl (Sublimaze) 100 mcg IV Q2H PRN PRN Reason: Labor Pain Last Admin: 12/30/17 02:23 Dose: 100 mcg Ampicillin Sodium (Polycillin/Ns 2 Gm/100 Ml) 2 gm in 100 mls @ 100 mls/hr IV ONCE ONE; Protocol Stop: 12/30/17 03:15 Last Admin: 12/30/17 02:20 Dose: 100 mls/hr Lactated Ringer's (Lactated Ringers) 1,000 mls @ 125 mls/hr IV DIRECT MARISOL Last Admin: 12/30/17 02:24 Dose: 125 mls/hr Oxytocin/Sodium Chloride (Pitocin/Ns 20 Unit/1000ml Drip) 20 units in 1,000 mls @ 125 mls/hr IV DIRECT MARISOL Review of Systems All systems: negative - Vital Signs Vital signs: Vital Signs Pulse BP Pulse Ox 83 124/77 100 12/30/17 01:50 12/30/17 01:50 12/30/17 01:50 Temp Pulse Resp BP Pulse Ox 98.1 F 95 H 18 124/77 91 12/30/17 02:20 12/30/17 02:10 12/30/17 02:23 12/30/17 01:50 12/30/17 02:10 - Physical Exam Breasts: Positive: deferred Cardiovascular: Regular rate Lungs: Positive: Clear to auscultation Abdomen: Positive: normal appearance Genitourinary (Female): Positive: normal external genitalia Vagina: Positive: normal moisture Uterus: Positive: enlarged Extremities: Positive: normal - Obstetrical FHR: category 1 Uterine Contraction Monitor Mode: External Cervical Dilatation: 10 Cervical Effacement Percentage: 100 station: 0 Uterine Contraction Pattern: Regular Uterine Tone Measurement Phase: Contraction Uterine Contraction Intensity: Strong/Firm Results All other labs normal. Assessment and Plan - Patient Problems (1) 38 weeks gestation of Onset Date: 12/30/17 Current Visit: Yes Status: Acute Plan to address problem: A: IUP @ 38 5/7 weeks in labor Unknown GBS P: Admit to L&D for expectant vaginal delivery Obtain records
--- NOTE | 2017-12-30 03:16 | Procedure Note ---
OB Delivery Note - Delivery Date of Delivery: 12/30/17 Surgeon: ANN MARIE GALAN Estimated blood loss: 100cc - Vaginal Delivery presentation: vertex Delivery position: OA Intrapartum events: precipitous labor- <3hr Delivery induction: none Delivery augmentation: rupture of membranes Delivery monitor: external FHT, external uterine Route of delivery: Delivery placenta: spontaneous Delivery cord: 3 umbilical vessels Episiotomy: none Delivery laceration: none Anesthesia: none Delivery comments: delivered OA and placed on Mom's chest for [id number] bonding and delayed cord clamping - A at 1 minute: 8 at 5 minutes: 9 Infant Gender: Male ([id number])
[2017-12-30] MEDS ORDERED: BRETHINE IVP PRN (03:18)
[2017-12-30] MEDS ORDERED: ePHEDrine SULFATE IV PRN (03:18)
[2017-12-30] MEDS ORDERED: MINERAL OIL PO PRN (03:18)
[2017-12-30] MEDS ORDERED: BRETHINE SUB-Q PRN (03:18)
[2017-12-30] MEDS ORDERED: XYLOCAINE 2% INFILTRATI ONE (03:18)
[2017-12-30] MEDS ORDERED: PHENERGAN PR PRN (03:20)
[2017-12-30] MEDS ORDERED: PHENERGAN PO PRN (03:20)
[2017-12-30] MEDS ORDERED: LANSINOH TP PRN (03:20)
[2017-12-30] MEDS ORDERED: DULCOLAX PR PRN (03:20)
[2017-12-30] MEDS ORDERED: MILK OF MAGNESIA PO PRN (03:20)
[2017-12-30] MEDS ORDERED: BENADRYL PO PRN (03:20)
[2017-12-30] MEDS ORDERED: TUCKS PAD TP PRN (03:20)
[2017-12-30] MEDS ORDERED: ZOFRAN IV PRN (03:20)
[2017-12-30] MEDS ORDERED: TYLENOL PO PRN (03:20)
[2017-12-30 03:27] LABS: Hemoglobin 10.9 gm/dl (10.1-14.3); Mean Corpuscular HGB Conc 34 % (30-34); Mean Corpuscular Hemoglobin 31 pg (28-32); Mean Corpuscular Volume 92 fl (79-97); Platelet Count 259 K/mm3 (140-440); Red Cell Distribution Width 13.8 % (13.2-15.2)
[2017-12-30 03:36] LABS: Hepatitis C Virus Antibody Non-Reactive (NonReactive)
[2017-12-30] MEDS ORDERED: SODIUM CHLORIDE FLUSH SYRINGE 10 ML IV NR (04:00)
[2017-12-30] MEDS ORDERED: PITOCin/NS 30 UNIT/500ML 30 UNITS/500 ML BAG IV SCH (04:00)
[2017-12-30 04:01] LABS: Rubella IgG Antibody Immune (Immune)
[2017-12-30] MEDS: NORCO 5/325 PO PRN ×3 (04:24→22:28)
[2017-12-30] MEDS: MOTRIN PO SCH ×2 (05:40→13:51)
[2017-12-30 09:26] LABS: Amphetamine Screen,Urine PRESUMPTIVE NEGATIVE; Benzodiazepines Screen,Urine PRESUMPTIVE NEGATIVE; Cocaine Screen,Urine PRESUMPTIVE NEGATIVE; Methadone Screen,Urine PRESUMPTIVE NEGATIVE; Opiate Screen,Urine PRESUMPTIVE NEGATIVE
[2017-12-30 09:41] LABS: Cannabinoid Screen,Urine PRESUMPTIVE POSITIVE
[2017-12-30] MEDS: COLACE PO SCH ×2 (10:21→22:27)
[2017-12-30] MEDS: FEOSOL PO SCH ×2 (10:21→22:27)
[2017-12-30] MEDS: PRENATAL VITAMIN PO SCH (13:51)
[2017-12-30 16:03] LABS: Hematocrit 29.3 % (30.3-42.9); Hemoglobin 9.9 gm/dl (10.1-14.3)
[2017-12-31] MEDS ORDERED: M-M-R II VACCINE SUB-Q ONE (06:00)
[2017-12-31] MEDS ORDERED: BOOSTRIX IM ONE (06:00)
--- NOTE | 2017-12-31 07:25 | Progress Note ---
Assessment and Plan - Patient Problems (1) 38 weeks gestation of Onset Date: 12/30/17 Current Visit: Yes Status: Resolved (2) (normal spontaneous vaginal delivery) Onset Date: 12/31/17 Current Visit: Yes Status: Resolved Plan to address problem: A: S/P - PPD #1 Doing well Asymptomatic anemia - stable P: May go home today Subjective - Subjective Date of service: 12/31/17 Principal diagnosis: s/p - PPD #1 Interval history: Pt is feeling well without complaints. Bleeding improved. Patient reports: appetite normal, voiding normally, pain well controlled, flatus , ambulating normally, no nauseated [place]: doing well, nursing well Objective - Vital Signs Latest vital signs: Vital Signs Temp Pulse Resp BP BP Pulse Ox 12/30/17 23:30 98.6 F 78 18 108/75 12/30/17 20:00 98.7 F 61 16 112/73 12/30/17 16:29 98.7 F 18 107/61 12/30/17 12:20 98.1 F 20 112/71 12/30/17 09:48 98.7 F 76 18 87/39 98 Intake and Output 12/30/17 12/31/17 12/31/17 22:59 06:59 14:59 Intake Total 300 Output Total 1300 Balance -1000 Intake: Intake, Free Water 300 Output: Urine 1300 Void 1300 Other: Total, Output Amount 600 # Voids Void 1 - Exam Breasts: Present: deferred Abdomen: Present: normal appearance, soft Uterus: Present: normal, firm, fundal height below umbilicus Extremities: Present: normal - Labs Labs: Abnormal lab results 12/30/17 Range/Units 15:03 Hgb 9.9 L (10.1-14.3) gm/dl Hct 29.3 L (30.3-42.9) % Laboratory Tests 12/30/17 12/30/17 12/30/17 02:04 02:04 02:04 WBC RBC Hgb Hct MCV MCH MCHC RDW Plt Count Sickle Cell Screen Urine Opiates Screen Urine Methadone Screen Ur Barbiturates Screen Ur Phencyclidine Scrn Ur Amphetamines Screen U Benzodiazepines Scrn Urine Cocaine Screen U Marijuana (THC) Screen Drugs of Abuse Note RPR Nonreactive Hep Bs Antigen Non-reactive Hepatitis C Antibody Non-reactive HIV 1&2 Antibody Rapid HIV P24 Antigen Rubella IgG Antibody Immune Blood Type Antibody Screen Antibody Identification 12/30/17 12/30/17 12/30/17 02:04 02:04 02:16 WBC 10.1 RBC 3.50 L Hgb 10.9 Hct 32.0 MCV 92 MCH 31 MCHC 34 RDW 13.8 Plt Count 259 Sickle Cell Screen Negative Urine Opiates Screen Urine Methadone Screen Ur Barbiturates Screen Ur Phencyclidine Scrn Ur Amphetamines Screen U Benzodiazepines Scrn Urine Cocaine Screen U Marijuana (THC) Screen Drugs of Abuse Note RPR Hep Bs Antigen Hepatitis C Antibody HIV 1&2 Antibody Rapid Non react HIV P24 Antigen Non react Rubella IgG Antibody Blood Type O NEGATIVE Antibody Screen Positive Antibody Identification Anti-D (Passively Aquired) 12/30/17 12/30/17 15:03 Unknown WBC RBC Hgb 9.9 L Hct 29.3 L MCV MCH MCHC RDW Plt Count Sickle Cell Screen Urine Opiates Screen Presumptive negative Urine Methadone Screen Presumptive negative Ur Barbiturates Screen Presumptive negative Ur Phencyclidine Scrn Presumptive negative Ur Amphetamines Screen Presumptive negative U Benzodiazepines Scrn Presumptive negative Urine Cocaine Screen Presumptive negative U Marijuana (THC) Screen Presumptive positive Drugs of Abuse Note Disclamer RPR Hep Bs Antigen Hepatitis C Antibody HIV 1&2 Antibody Rapid HIV P24 Antigen Rubella IgG Antibody Blood Type Antibody Screen Antibody Identification
[2017-12-31] MEDS: MOTRIN PO SCH ×2 (09:32→17:51)
[2017-12-31] MEDS: FEOSOL PO SCH (09:34)
[2017-12-31] MEDS: PRENATAL VITAMIN PO SCH (09:34)
[2017-12-31] MEDS: COLACE PO SCH (09:34)
--- NOTE | 2017-12-31 09:53 | Discharge Summary ---
Providers - Providers Date of Admission: 12/30/17 01:49 Date of discharge: 12/31/17 Attending physician: ANN MARIE GALAN Primary care physician: ANN MARIE GALAN Hospitalization Reason for admission: active labor, rupture of membranes, IUP at term Delivery: Episiotomy: none Laceration: none Other procedures: none complications: none Discharge diagnosis: IUP at term delivered [place] baby: male Hospital course: Unremarkable. Condition at discharge: Good Disposition: DC-01 TO HOME OR SELFCARE - Discharge Diagnoses (1) 38 weeks gestation of Status: Resolved (2) (normal spontaneous vaginal delivery) Status: Resolved Plan - Discharge Medications Prescriptions: Ferrous Sulfate [Feosol 325 MG tab] 325 mg PO BID #60 tablet Ibuprofen [Motrin 600 MG tab] 600 mg PO Q6H #30 tablet Vit-Fe Fumar-FA [ Vitamin] 1 each PO QDAY #30 tablet - Provider Discharge Summary Activity: routine, no sex for 6 weeks, no heavy lifting 4 weeks, no strenuous exercise Diet: routine Instructions: routine Additional instructions: [] Smoking cessation referral if applicable(refer to patient education folder for contact #) [] Refer to [facility]'s [facility] Booklet Call your doctor immediately for: * Fever > 100.5 * Heavy vaginal bleeding ( >1 pad per hour) * Severe persistent headache * Shortness of breath * Reddened, hot, painful area to leg or breast * Drainage or odor from incision. * Keep incision clean and dry at all times and follow doctor's instructions regarding bathing/showering - Follow up plan Follow up: ANN MARIE GALAN MD [Primary Care Provider] - 6 Weeks JANIS CHO MD [Referring] - 6 Weeks
[2017-12-31] MEDS: NORCO 5/325 PO PRN (17:55)
[2017-12-31 22:57] VITALS: BP 113/71
== END 2017-12-31 22:00 | disposition home or self-care (01) | DRG 775 ==
LOC: TRG 01:39 → LD 01:49 → OB 05:09
PROVIDERS: ADMIT Obstetrics & Gynecology; ATTEND Obstetrics & Gynecology
PROC: 10E0XZZ Delivery of Products of Conception, External Approach (ICD-10-PCS; principal; 2017-12-30)
PROC: 3E0234Z Introduction of Serum, Toxoid and Vaccine into Muscle, Percutaneous Approach (ICD-10-PCS; 2017-12-30)
DX: O62.3 Precipitate labor (principal); Z3A.38 38 weeks gestation of pregnancy; Z37.0 Single live birth; Z23 Encounter for immunization; O90.81 Anemia of the puerperium; D64.9 Anemia, unspecified
CPT/HCPCS: 36415; 80307; 85014; 85018; 85027; 85660; 86592; 86706; 86762; 86803; 86850; 86870; 86900; 86901; 87806; 99211; G0463; J0290; J2590; J3010; J7120